=== PATIENT | female | born 1965 | race Caucasian/White ===

== ENCOUNTER → 2019-12-22 11:18 | Outpatient (BNVA) | payer OTHER, SELFPAY | PROVIDERS: Family Provider Family Medicine; Referring Provider Internal Medicine; Visit Provider Specialist | DX: G35 Multiple sclerosis (principal) | CPT/HCPCS: 99204 ==

== ENCOUNTER 2020-01-09 12:28 | Outpatient (CLI) | payer OTHER, SELFPAY ==
--- NOTE | 2020-01-09 13:00 | MR_ITS ---
WS: [id number] MRI BRAIN WITH AND WITHOUT CONTRAST HISTORY: Multiple sclerosis. COMPARISON: 05/05/2019 TECHNIQUE: Multiplanar imaging performed through the brain with Prohance 17 ml's IV. No acute infarcts are seen. Frank-white matter differentiation is well preserved. There are several de myelinating plaques and pericallosal distribution, perpendicular to the corpus callosum which are nitin y similar in distribution to the prior examination. No new demyelinating lesions are identified. None of these demyelinating lesions enhance. No posterior fossa lesion. Giovanni and medulla will be better e valuated on the following cervical spine MRI. No temporal lobe lesions. No susceptibility artifacts or prior lacunar infarcts. Ventricles and extra-axial spaces are normal. Clivus and pituitary gland are normal. Visualized posterior fossa and brainstem are also normal. Postcontrast images are negative for masses or vascular malformations. Dural venous sinuses are normal. Paranasal sinuses: Well aerated with no significant disease. Mastoid air cells: Normal. Calvarium and scalp: Normal. MR/MR head wo/w con [id number] IMPRESSION: 1. Demyelinating plaques in a pericallosal distribution are similar in size an d number without enhancement to the prior study of 05/05/2019. There are only a few scattered plaques. 2. No demyelinating plaques noted in the posterior fossa.
--- NOTE | 2020-01-09 13:45 | MR_ITS ---
WS: [id number] MRI CERVICAL SPINE with and without contrast. HISTORY: Multiple sclerosis. COMPARISON: 04/26/2019 Straightening of the normal cervical lordosis. Mild disc desiccation and narrowing at C4-5. No fractu res or marrow edema. There are extensive demyelinating lesions noted throughout the nai and the cervical cord extending i nto the upper thoracic cord. Large area of involvement in the nai measures 1.6 x 1.0 cm. Increased s ignal in the superior portion of the medulla. There are numerous scattered lesions in the cervical co rd. The largest at the C5-6 level extends over length of 1.7 cm. There are additional more subtle nancy nges of increased signal in the posterior thoracic cord at the T4-5 level. There is some very mild at rophy of the cervical cord at the C5-6 level. On the postcontrast study is no evidence for enhancemen t. Central disc osteophyte protrusions at C4-5 and C5-6 with mild contact on the cord. MR/MR cervical spine wo/w [id number] IMPRESSION: 1. Numerous demyelinating lesions are noted throughout the cervical cord. The largest extends over a length of 1.7 cm at C5-6 and mild atrophy of the cord i s demonstrated at this level. 2. No active demyelinating lesions. 3. There is a large amount of demyelination in the nai and a smaller area of demyelination in the upper thoracic cord at T4-5.
== END 2020-01-09 12:29 | disposition home or self-care (01) ==
LOC: RADSHAW 12:30
PROVIDERS: PCP Internal Medicine; Visit Provider Specialist
DX: G35 Multiple sclerosis (principal)
CPT/HCPCS: 70553; 72156; A9579